=== PATIENT | female | born 1995 | race Caucasian/White ===

== ENCOUNTER 2022-10-27 04:23 | Emergency (ER) | payer OTHER ==
[~2022-10-27] VITALS: Ht 165.1 cm; Wt 63.5 kg
[2022-10-27] MEDS ORDERED: ACETAMINOPHEN ES 500 MG TABLET ONE (05:12)
[2022-10-27] MEDS ORDERED: IBUPROFEN 600 MG TABLET ONE (05:12)
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
[2022-10-27] MEDS ORDERED: ACETAMINOPHEN ES 500 MG TABLET PO ONE (05:30)
[2022-10-27] MEDS ORDERED: IBUPROFEN 600 MG TABLET PO ONE (05:30)
--- NOTE | 2022-10-27 05:37 | NUR ---
PT SIGNED WEIVER
--- NOTE | 2022-10-27 05:50 | NUR ---
PT TAKEN TO CT SCAN VIA [facility]
--- NOTE | 2022-10-27 06:17 | NUR ---
PT RETURNED FROM CT
--- NOTE | 2022-10-27 08:13 | NUR ---
PT ABLE TO AMBULATE AND ANSWER QUESTIONS APPROPRIATLY A/O X4 ABLE TO FLOOW DIRECTIONS AND MAKE NEEDS KNOWN. ANXIOUS AND WAIT TO BE DC. NOSE BLEEDING EPISODICALY GIVEN 2X2 TO CONTROL BLEEDING. NO PAIN REPORTED AT THIS TIME.
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
[2022-10-27 09:15] VITALS: BP 125/76
--- NOTE | 2022-10-27 09:15 | NUR ---
Patient discharged to home in stable condition. Written and verbal after care instructions given. Patient verbalizes understanding of instruction.
== END 2022-10-27 09:16 | disposition home or self-care (01) ==
LOC: ER 04:26
DX: H57.12 Ocular pain, left eye (principal); M79.631 Pain in right forearm; Z88.0 Allergy status to penicillin; Z88.8 Allergy status to other drugs, medicaments and biological substances; Z60.2 Problems related to living alone
CPT/HCPCS: 70450-TC; 70486-TC; 72125-TC; 73090-TC